=== PATIENT | female | born 1995 | race Caucasian/White ===

== ENCOUNTER 2020-02-29 11:13 | Emergency (ER) | payer OTHER ==
[2020-02-29] MEDS ORDERED: NORMAL SALINE 1000 ML 1,000 ML IV ONE (11:28)
[2020-02-29] MEDS ORDERED: ACETAMINOPHEN 325 MG TABLET PO ONE (11:28)
--- NOTE | 2020-02-29 11:30 | ER Document Report ---
ED Medical Screen (RME) - General Chief Complaint: Leg Pain Stated Complaint: RIGHT LEG PAIN/SWELLING Time Seen by Provider: 02/29/20 11:25 Mode of Arrival: Wheelchair Information source: Patient Notes: 25-year-old female presents to ED for complaint of right leg inner thigh pain as well as fever since Saturday. Pulse is 126 blood pressure 135/78 O2 sat 99% respirations 20 fever 101.1. I have entered these into the computer. She is nontoxic in appearance without fever. She denies any past medical or surgical history except for neck cyst that were removed. She states she is on c ontrol pills. She states she does not smoke she does drink weekly and does not use any illicit drugs. Lungs are clear to auscultation. I have greeted and performed a rapid initial assessment of this patient. A comprehensive ED assessment and evaluation of the patient, analysis of test results and completion of medical decision making process will be conducted by an additional ED providers. Physical Exam - Vital signs Vitals: Temp Pulse Resp BP Pulse Ox 101.1 F H 123 H 22 H 135/78 H 98 02/29/20 11:24 02/29/20 11:24 02/29/20 11:24 02/29/20 11:24 02/29/20 11:24 Course - Vital Signs Vital signs: Temp Pulse Resp BP Pulse Ox 101.1 F H 123 H 22 H 135/78 H 98 02/29/20 11:24 02/29/20 11:24 02/29/20 11:24 02/29/20 11:24 02/29/20 11:24
--- NOTE | 2020-02-29 12:04 | EKG REPORT ---
SEVERITY:- BORDERLINE ECG - SINUS TACHYCARDIA PROBABLE LEFT ATRIAL ABNORMALITY : Confirmed by: Phong Padilla MD 29-Feb-2020 12:03:48
[2020-02-29 12:22] LABS: ABSOLUTE LYMPHOCYTES (AUTO) 1.6 10^3/uL (0.5-4.7); ABSOLUTE MONOCYTES (AUTO) 1.1 10^3/uL (0.1-1.4); ABSOLUTE NEUT (AUTO) 4.8 10^3/uL (1.7-8.2); BASOPHILS % (AUTO) 0.4 % (0-2); EOSINOPHILS % (AUTO) 0.4 % (0-6); HEMATOCRIT 33.7 % (36.0-47.0); LYMPHOCYTES % (AUTO) 21.7 % (13-45); MEAN CORPUSCULAR HEMOGLOBIN 31.6 pg (27.0-33.4); MEAN CORPUSCULAR HGB CONC 35.7 g/dL (32.0-36.0); MEAN CORPUSCULAR VOLUME 88 fl (80-97); MONOCYTES % (AUTO) 14.6 % (3-13); PLATELET COUNT 245 10^3/uL (150-450); RED BLOOD COUNT 3.81 10^6/uL (3.72-5.28); RED CELL DISTRIBUTION WIDTH 11.5 % (11.5-14.0); SEGMENTED NEUTROPHILS % (AUTO) 62.9 % (42-78); TOTAL CELLS COUNTED % (AUTO) 100 %; VENOUS BLOOD BASE EXCESS 2.3 mmol/L; VENOUS BLOOD HCO3 27.3 mmol/L (20-32); VENOUS BLOOD PCO2 42.9 mmHg (35-63); VENOUS BLOOD PH 7.42 (7.30-7.42); WHITE BLOOD COUNT 7.6 10^3/uL (4.0-10.5)
[2020-02-29 12:26] LABS: INTERNATIONAL RATION (INR) 0.93; PROTHROMBIN TIME 12.7 SEC (11.4-15.4)
[2020-02-29 12:42] LABS: ALBUMIN 3.9 g/dL (3.5-5.0); ALKALINE PHOSPHATASE 63 U/L (38-126); ANION GAP 9 (5-19); ASPARTATE AMINO TRANSFERASE 26 U/L (14-36); BILIRUBIN,DIRECT 0.2 mg/dL (0.0-0.4); BILIRUBIN,TOTAL 0.4 mg/dL (0.2-1.3); BLOOD UREA NITROGEN 8 mg/dL (7-20); CALCIUM 9.5 mg/dL (8.4-10.2); CARBON DIOXIDE 27 mmol/L (22-30); CHLORIDE 101 mmol/L (98-107); GLUCOSE 99 mg/dL (75-110); POTASSIUM 4.3 mmol/L (3.6-5.0); TOTAL PROTEIN 7.1 g/dL (6.3-8.2)
[2020-02-29 14:13] LABS: APPEARANCE,URINE CLOUDY; BILIRUBIN,URINE NEGATIVE (NEGATIVE); COLOR,URINE YELLOW; GLUCOSE, URINE NEGATIVE (NEGATIVE); KETONES,URINE NEGATIVE (NEGATIVE); LEUKOCYTE ESTERASE,URINE TRACE (NEGATIVE); NITRITE,URINE NEGATIVE (NEGATIVE); PROTEIN,URINE NEGATIVE (NEGATIVE); URINE SPECIFIC GRAVITY 1.006; UROBILINOGEN,URINE NEGATIVE mg/dL (<2.0)
--- NOTE | 2020-02-29 16:21 | RADIOLOGY REPORT (SQ) ---
EXAM DESCRIPTION: VENOUS UNILATERAL LOWER IMAGES COMPLETED DATE/TIME: 02/29/2020 4:09 pm REASON FOR STUDY: Right medial thigh redness and tenderness COMPARISON: None. TECHNIQUE: Dynamic and static ware scale and color images acquired of the right leg venous system. S elected spectral images acquired with additional compression and augmentation maneuvers. The contrala teral common femoral vein and saphenofemoral junction were also imaged. Images stored on PACS. LIMITATIONS: None. FINDINGS: COMMON FEMORAL: Normal phasicity, compression and augmentation. No visualized echogenic ma terial on ware scale. No defects on color images. FEMORAL: Normal compression and augmentation. No visualized echogenic material on ware scale. No defe cts on color images. POPLITEAL: Normal compression, augmentation. No visualized echogenic material on ware scale. No defec ts on color images. CALF VESSELS: Normal compression, augmentation. No visualized echogenic material on ware scale. No de fects on color images. GSV and SSV: Normal compression, augmentation. No visualized echogenic material on ware scale. No def ects on color images. ANY DEEP VENOUS INSUFFICIENCY: No. ANY EVIDENCE OF POPLITEAL CYST: No. OTHER: Prominent superficial inguinal lymph nodes. CONTRALATERAL COMMON FEMORAL VEIN: Normal phasicity, compression and augmentation. No visualized echogenic material on ware scale. No de fects on color images. IMPRESSION: NO EVIDENCE OF DVT OR SVT IN THE RIGHT LEG. TECHNICAL DOCUMENTATION: JOB ID: [id number] [email or web address]- All Rights Reserved Reading location - IP/workstation name: [email or web address]
[2020-02-29] MEDS ORDERED: CLINDAMYCIN 600 MG/D5W RTU 600 MG/50 ML RTUPB IV ONE (17:49)
--- NOTE | 2020-02-29 17:49 | ER Document Report ---
ED Extremity Problem, Lower - General Chief Complaint: Leg Pain Stated Complaint: RIGHT LEG PAIN/SWELLING Time Seen by Provider: 02/29/20 11:25 Mode of Arrival: Wheelchair Information source: Patient Notes: 25-year-old woman presenting to the emergency department with a history of a area of swelling and pain in the right proximal thigh. She states that she has been having episodic swelling and pain over the past 3 days with associated sweats and chills. She denies a history of diabetes mellitus or other immunocompromise status. Patient also noted she is not allergic to any medication. She denies cat scratch or insect bite. - Related Data Allergies/Adverse Reactions: No Known Allergies Allergy (Unverified 02/29/20 11:44) Home Medications: control Past Medical History - General Information source: Patient - Social History Smoking Status: Never Smoker Chew tobacco use (# tins/day): No Frequency of alcohol use: Occasional Drug Abuse: None Family History: Reviewed & Not Pertinent Review of Systems - Review of Systems Notes: Constitutional: Negative for fever. HENT: Negative for sore throat. Eyes: Negative for visual changes. Cardiovascular: Negative for chest pain. Respiratory: Negative for shortness of breath. Gastrointestinal: Negative for abdominal pain, vomiting or diarrhea. Genitourinary: Negative for dysuria. Musculoskeletal: See HPI Skin: Negative for rash. Neurological: Negative for headaches, weakness or numbness. 10 point ROS negative except as marked above and in HPI. Physical Exam - Vital signs Vitals: Temp Pulse Resp BP Pulse Ox 101.1 F H 123 H 22 H 135/78 H 98 02/29/20 11:24 02/29/20 11:24 02/29/20 11:24 02/29/20 11:24 02/29/20 11:24 - Notes Notes: PHYSICAL EXAMINATION: Physical Exam: General: Well-nourished well-developed 25-year-old female in no acute distress HEENT: NC/AT, pupils equal round and reactive to light, MM moist,nares clear, oropharynx clear, airway patent Neck: supple, no adenopathy, no masses. Good range of motion Lungs: clear, no wheezing, no rales no rhonchi CVS: Regular rate and rhythm no murmur gallop or rub Abdomen: Soft, active, nontender, no masses, no hepatosplenomegaly Ext: Right lower extremity with a approximately 3 cm area of erythema in the proximal groin area. There is a firmness noted to palpation and tenderness that the patient notes as well. There is no streaking or distal swelling noted. Neuro: Alert and responsive, moving all 4 extremities on command, cranial nerves intact, no focal findings Skin: Intact no open lesions, no rash PSYCH: Normal mood, normal affect. Course - Re-evaluation Re-evalutation: 02/29/20 17:48 25-year-old woman who presents to the emergency department with fever and a focal area of swelling on the right medial thigh. Ultrasound of the area reveals a swollen lymph node with no fluid collections noted. Given her fever antibiotics are appropriate and patient is being given clindamycin 600 mg IV and discharged with clindamycin 300 mg 3 times daily for the next 10 days. I have asked her to use a warm compress to the area and to follow-up with her doctor as needed. Patient and significant other acknowledges understanding of this plan. - Vital Signs Vital signs: Temp Pulse Resp BP Pulse Ox 99.9 F 123 H 19 112/69 100 02/29/20 19:21 02/29/20 11:24 02/29/20 19:21 02/29/20 19:21 02/29/20 19:21 - Laboratory Results Result Diagrams: 02/29/20 12:00 02/29/20 12:00 Laboratory Results Interpreted: 02/29/20 02/29/20 02/29/20 12:00 13:48 15:44 Hct 33.7 L [place] % (Auto) 14.6 H Lactic Acid 0.6 L Urine Blood SMALL H Ur Leukocyte Esterase TRACE H Critical Laboratory Results Reviewed: No Critical Results - Radiology Results Radiology Results Interpreted: 02/29/20 17:51 Venous Doppler Study 02/29/20 12:41 IMPRESSION: NO EVIDENCE OF DVT OR SVT IN THE RIGHT LEG. Critical Radiology Results Reviewed: No Critical Results Discharge - Discharge Clinical Impression: Lymphadenopathy syndrome, Right thigh pain Fever Qualifiers: Fever type: unspecified Qualified Code(s): R50.9 - Fever, unspecified Condition: Good Disposition: HOME, SELF-CARE Instructions: Fever ([facility]), Lymphadenopathy ([facility]) Additional Instructions: You are seen in the emergency department today with fever and a area of swelling in the medial right thigh. On ultrasound this appears to be a lymph node which is inflamed and likely responding to infection. You are being discharged with antibiotics, please take the antibiotics as prescribed for the full 10 days. If your symptoms are improving and the fevers are abating no further follow-up will be needed. Please use Tylenol or ibuprofen for fever and pain. You can use a warm compress to the area of swelling and tenderness. If the symptoms are worsening or if you have other concerns you may return to the emergency department for further evaluation and treatment. HOME CARE INSTRUCTIONS & INFORMATION: Thank you for choosing us for your medical needs. We hope you're satisfied with the care you received. After you leave, you must properly care for your problem and, at the same time, observe its progress. Any condition can change. Some illnesses can change rapidly over hours or days. If your condition worsens, return to the Emergency Department or see your physician promptly. ABOUT YOUR X-RAYS AND EKG'S: If you had an EKG or X-rays taken, they have been read by the Emergency Physician. The X-rays and EKG's will also be read by a Radiologist or Manager [employer] within 24 hours. If discrepancies are noted, you will be notified by telephone. Please be certain the ED has a correct telephone number & address where you can be reached. Also, realize that some fractures or abnormalities do not show up on initial X-rays. If your symptoms continue, see your physician. ABOUT YOUR LABORATORY TEST: If you had laboratory tests, the results have been reviewed by the Emergency Physician. Some test results (for example cultures) may not be available for several days. You will be contacted if any test result shows you need additional treatment. Please be certain the ED has a correct telephone number and address where you can be reached. ABOUT YOUR MEDICATIONS: You will receive instructions on how to take your medicine on the prescription label you receive. Additional information may be provided by the Pharmacy. If you have questions afterwards, call the ED for clarification or further instructions. Some prescribed medications may cause drowsiness. Do not perform tasks such as driving a car or operating machinery without consulting your Pharmacist. If you feel you need a refill of pain medication, your condition will need re-evaluation. Please do not call for a refill of any medication. ABOUT YOUR SIGNATURE: Signature of this document acknowledges to followin. Understanding that you received emergency treatment and that you may be released before al medical problems are known or treated. Please be certain the ED has a correct phone number & address where you can be reached. 2. Acknowledgement that you will arrange for follow-up care as recommended. 3. Authorization for the Emergency Physician to provide information to your follow-up Physician in order to maximize your care. AT ANY TIME, IF YOUR SYMPTOMS CHANGE SIGNIFICANTLY OR WORSEN OR YOU DEVELOP NEW SYMPTOMS, RETURN TO THE EMERGENCY DEPARTMENT IMMEDIATELY FOR RE-EVALUATION. OUR GOAL IS TO PROVIDE EXCELLENT MEDICAL CARE! WE HOPE THAT WE HAVE MET YOUR EXPECTATIONS DURING YOUR EMERGENCY DEPARTMENT VISIT AND THAT YOU FEEL YOU HAVE RECEIVED EXCELLENT CARE! Prescriptions: Clindamycin HCl 300 mg PO TID #30 capsule
[2020-02-29 19:28] VITALS: BP 112/69
== END 2020-02-29 19:28 | disposition home or self-care (01) ==
LOC: ER 11:13
DX: R59.0 Localized enlarged lymph nodes (principal); M79.651 Pain in right thigh; R50.9 Fever, unspecified; Z79.3 Long term (current) use of hormonal contraceptives; L53.9 Erythematous condition, unspecified
CPT/HCPCS: 93005; 99285; 96361; 96365; 36415; 87040; 87086; 82962; 84702; 83605; 85025; 85610; 80053; 81001; 82803; 93971; 93010; J7030; 87088